=== PATIENT | female | born 1985 | race Caucasian/White ===

== ENCOUNTER 2017-02-14 12:22 | Emergency (ER) | payer MEDICAID ==
[~2017-02-14] VITALS: Wt 71.0 kg
--- NOTE | 2017-02-14 14:34 | ERA ---
ER Documentation Chief Complaint Date/Time DATE: 02/14/17 TIME: 14:27 Chief Complaint RIGHT ARM PAIN AFTER FALL 2 WEEKS AGP HPI Patient presents with right hand pain. Patient experienced trauma 2 weeks ago to the right forearm. Patient's right forearm is now is 0 out of 10 on pain scale. Patient's pain in the right hand however persists despite daily ibuprofen use. Patient's pain is worse with movement and subsides with rest. Patient denies any inflammation, fever, swelling, or trauma to the digit. Denies any loss of sensation or movement. ROS All systems reviewed and are negative except as per history of present illness. Medications Home Meds Active Scripts Ibuprofen* (Motrin*) 600 Mg Tab, 600 MG PO Q6H Y for PAIN AND OR ELEVATED TEMP, #30 TAB Prov:WILLIAM ZAYAS PA-C 02/14/17 Allergies Allergies: Coded Allergies: No Known Drug Allergy (Verified Allergy, Unknown, 05/10/07) Physical Exam Vitals Vital Signs Date Time Temp Pulse Resp B/P Pulse Ox O2 Delivery O2 Flow Rate FiO2 02/14/17 12:28 98.0 71 18 129/63 99 Physical Exam Const: Well-appearing 31-year-old female. Head: Atraumatic Eyes: Normal Conjunctiva ENT: Normal External Ears, Nose and Mouth. Neck: Full range of motion..~ No meningismus. Resp: Clear to auscultation bilaterally Cardio: Regular rate and rhythm, no murmurs Abd: Soft, non tender, non distended. Normal bowel sounds Skin: No petechiae or rashes Back: No midline or flank tenderness Ext: No cyanosis, or edema. Right thumb has limited range of motion with abduction. Positive Cecilia test. Pain over the lateral malleolus. Crepitus on palpation of the right thumb with adduction. Neur: Awake and alert sensation intact bilaterally. Psych: Normal Mood and Affect Procedures/MDM Patient is presenting with complaint of right hand pain. Patient's thumb has limited range of motion secondary to pain. Patient had a positive Cecilia test. Since there is a history of trauma to the right forearm will go ahead and get an x-ray. Patient's x-ray was normal. Have advised the patient to follow-up with her primary care provider and home specialist within the next 1-3 days. Will discharge with a thumb spica splint and have recommended to take ibuprofen as needed for any discomfort or inflammation as prescribed. Have discussed rice therapy. Departure Condition: Stable Additional Instructions: Follow-up with an home specialist within the next week. Continue ibuprofen for pain. Follow-up with primary care provider in the next 1-3 days. WILLIAM ZAYAS PA-C Feb 14, 2017 14:34
[2017-02-14] MEDS ORDERED: IBUP-1542 PO (14:40)
--- NOTE | 2017-02-14 15:18 | RADRPT ---
PROCEDURE: Right hand series CLINICAL INDICATION: Right hand pain after trauma TECHNIQUE: Three views of the right hand were obtained. COMPARISON: No prior studies are available for comparison. FINDINGS: There is normal mineralization and alignment of the bones of the right hand. There is no evidence o f acute fracture or dislocation. Joint spaces are well maintained. There is no evidence of osteoph yte formation or erosions. There is a subtle linear hyperdensity overlying the soft tissues of the distal second finger which may be within the nail or under the nail. IMPRESSION: 1. No evidence of acute fracture or dislocation. 2. Subtle linear hyperdensity in the soft tissues of the distal second digit which may be related t o the fingernail. Recommend correlation with physical exam. RPTAT: KK .Fish Dumont MD, Date Time Electronically viewed and signed by .Fish Dumont MD, MD on 02/14/2017 15:18 .B/
--- NOTE | 2017-02-14 15:30 | RADRPT ---
PROCEDURE: XR Wrist. CLINICAL INDICATION: Right wrist pain TECHNIQUE: AP, lateral and oblique views of the right wrist were performed. COMPARISON: Radiographs of the right hand performed same day FINDINGS: There is no acute fracture or dislocation. Alignment is normal. Joint spaces are preserved. Visualized soft tissues are grossly unremarkable. IMPRESSION: 1. No radiographic evidence of acute osseous abnormality of the right wrist. RPTAT: UU .Calin Woody MD, MD Date Time Electronically viewed and signed by .Calin Woody MD, on 02/14/2017 15:30 .K/
== END 2017-02-14 16:23 | disposition home or self-care (01) ==
LOC: FTE 12:22
DX: S69.91XA Unspecified injury of right wrist, hand and finger(s), initial encounter (principal); W18.39XA Other fall on same level, initial encounter; Y92.9 Unspecified place or not applicable
CPT/HCPCS: 29125; 73110; 73130; Z7502

== ENCOUNTER 2019-02-14 15:26 | Emergency (ER) | payer MEDICAID ==
[~2019-02-14] VITALS: Wt 69.5 kg
[~2019-02-14 15:26] MED LIST: IBUP-1542 PO
--- NOTE | 2019-02-14 18:05 | ERD ---
ER Documentation Chief Complaint Chief Complaint BACK PAIN RAD FRONT, BURNING SENSATION HPI Is a 33-year-old female who presents to the emergency room with complaint of left flank pain that radiates into left lower quadrant and pelvis X1 week. Yesterday started having nausea and feeling dizzy. Subjective fever. Increased urinary frequency, no burning with urination. Denies any vaginal discharge. Started menstrual period yesterday. No other medical problems. ROS All systems reviewed and are negative except as per history of present illness. Medications Home Meds Active Scripts Phenazopyridine Hcl* (Pyridium*) 200 Mg Tab, 200 MG PO TID for 3 Days, #10 TAB Prov:LJ QUIÑONES NP 02/14/19 Sulfamethoxazole/Trimethoprim* (Bactrim Ds* Tablet) 1 Each Tablet, 1 TAB PO BID for 3 Days, #5 TAB Prov:LJ QUIÑONES NP 02/14/19 Ibuprofen* (Motrin*) 600 Mg Tab, 600 MG PO Q6H PRN for PAIN AND OR ELEVATED TEMP, #30 TAB Prov:WILLIAM ZAYAS PA-C 02/14/17 Allergies Allergies: Coded Allergies: No Known Drug Allergy (Verified Allergy, Unknown, 05/10/07) PMhx/Soc Medical and Surgical Hx: pt denies Medical Hx, pt denies Surgical Hx Hx Alcohol Use: No Hx Substance Use: No Hx Tobacco Use: No Smoking Status: Never smoker FmHx Family History: No diabetes, No coronary disease, No other Physical Exam Vitals Vital Signs Date Temp Pulse Resp B/P (MAP) Pulse Ox O2 O2 Flow FiO2 Time Delivery Rate 02/14/19 98.5 70 18 115/73 100 Room Air 20:51 (87) 02/14/19 99.1 83 18 134/79 99 15:29 (97) Physical Exam Const: No acute distress Head: Atraumatic Eyes: Normal Conjunctiva ENT: Normal External Ears, Nose and Mouth. Neck: Full range of motion. No meningismus. Resp: Clear to auscultation bilaterally Cardio: Regular rate and rhythm, no murmurs Abd: Soft, tender at left lower quadrant, non distended. Normal bowel sounds. Skin: No petechiae or rashes Back: + left flank tenderness Ext: No cyanosis, or edema Neur: Awake and alert Psych: Normal Mood and Affect Results 24 hrs Laboratory Tests Test 4/6/19 17:06 02/14/19 17:15 02/14/19 17:17 Urine Color YELLOW Urine Clarity CLEAR Urine pH 6.0 Urine Specific [place] 1.006 Urine Ketones NEGATIVE mg/dL Urine Nitrite NEGATIVE mg/dL Urine Bilirubin NEGATIVE mg/dL Urine Urobilinogen NEGATIVE mg/dL Urine Leukocyte Esterase NEGATIVE Samantha/ul Urine Microscopic RBC > 182 /HPF Urine Microscopic WBC 5 /HPF Urine Squamous Epithelial Cells MODERATE /HPF Urine Hemoglobin 3+ mg/dL Urine Glucose NEGATIVE mg/dL Urine Total Protein NEGATIVE mg/dl Bedside Urine pH (LAB) 6.0 Bedside Urine Protein (LAB) Negative Bedside Urine Glucose (UA) Negative Bedside Urine Ketones (LAB) Negative Bedside Urine Blood 3+ Bedside Urine Nitrite (LAB) Negative Bedside Urine Leukocyte Esterase (L Trace POC Beta HCG, Qualitative NEGATIVE Current Medications Medications Dose Sig/Agata Start Time Status Last (Trade) Ordered Route PRN Stop Time Admin Dose Reason Admin 1 tab ONCE ONCE 02/14/19 DC 02/14/19 Trimethoprim/ PO 21:00 02/14/19 20:47 21:00 Sulfamethoxaz ole (Bactrim (Ds)) 200 mg ONCE ONCE 02/14/19 DC 02/14/19 Phenazopyridi PO 21:00 02/14/19 20:47 ne HCl 21:00 (Pyridium) Procedures/MDM 33-year-old female patient presents to the emergency room with complaint of left flank pain times 1 week. ED COURSE: The patient was stable throughout ED course. I kept the patient informed of laboratory and diagnostic imaging results throughout the ED course. DIAGNOSTIC IMAGING: Ultrasound Pelvic US: no pelvic abnormalities Retroperitoneal US: Normal sonographic exam of both kidneys Read by radiologist. MEDICATIONS GIVEN: Bactrim DS and Pyridium Patient tolerated medication well with no adverse reactions. Patient reported improvement in pain. There is low suspicion for pyelonephritis, vaginitis, STI, interstitial cystitis, nephrolithiasis, ovarian torsion, or ectopic , due to absence of clinical findings that would support a diagnosis more serious than uncomplicated UTI. These diagnoses have been considered and excluded clinically. Nonetheless, it is understood by both the patient and provider that no clinical or diagnostic assessment can entirely exclude such diseases. Patient has been instructed on signs and symptoms of concern or with evolving condition with strict instructions to return to ED for reevaluation. Patient was provided with results of all diagnostic tests and instructed to follow-up with primary care provider in 3-5 days for reevaluation of her symptoms. Departure Condition: Stable Additional Instructions: Thank you very much for allowing us to participate in your care. Your health and safety is our top priority at [facility]. Call your primary care doctor TOMORROW for an appointment during the next 2-4 days and bring all the information and medications prescribed. Have prescriptions filled and follow precisely the directions on the label. If the symptoms get worse and your provider is unavailable, return to the Emergency Department immediately. LJ QUIÑONES NP Feb 14, 2019 18:04
[2019-02-14] MEDS ORDERED: SULF1TAB31 PO (20:38)
[2019-02-14] MEDS ORDERED: PHEN-538 PO (20:38)
[2019-02-14 20:51] VITALS: BP 115/73; PULSE 70; RESP 18
[2019-02-14] MEDS ORDERED: TRIMETHOPRIM/SULFAMETHOX (DS) TAB PO ONE (21:00)
[2019-02-14] MEDS ORDERED: PHENAZOPYRIDINE 100 MG TAB PO ONE (21:00)
== END 2019-02-14 20:52 | disposition home or self-care (01) ==
LOC: FTE 15:26
DX: R10.32 Left lower quadrant pain (principal); R10.2 Pelvic and perineal pain
CPT/HCPCS: 76775; 76856; 81001; 81025; Z7502; Z7610; 81003

== ENCOUNTER 2019-03-25 17:09 | Emergency (ER) | payer MEDICAID ==
[~2019-03-25] VITALS: Wt 69.0 kg
[~2019-03-25 17:09] MED LIST changes: +PHEN-538 PO; +SULF1TAB31 PO
[2019-03-25] MEDS ORDERED: KETOROLAC 15 MG INJ IV STA (17:57)
[2019-03-25] MEDS ORDERED: SOD CHLORIDE 0.9% 1,000 ML IV STA (17:57)
[2019-03-25] MEDS ORDERED: ONDANSETRON 4 MG INJ IV STA (17:57)
--- NOTE | 2019-03-25 18:08 | ERD ---
ER Documentation Chief Complaint Chief Complaint L abdomen rad to flank pain x1mo; denies dysuria, no VD. some nausea HPI 33-year-old female with no significant past medical history presenting to the emergency department complaining of left upper quadrant pain for the past 1 month. She states that the pain began after she had URI symptoms for 2 weeks. Symptoms included fevers, chills, and sore throat. She reports radiation of the left flank area. Pain is intermittent, 7/10 in severity, alleviated with ibuprofen and Tylenol. She reports a burning sensation. She does report nausea but denies any fevers, chills, vomiting, diarrhea, or other symptoms at this time. ROS All systems reviewed and are negative except as per history of present illness. Medications Home Meds Active Scripts Naproxen* (Naprosyn*) 500 Mg Tablet, 500 MG PO BID PRN for PAIN AND/OR INFLAMMATION, #30 TAB Prov:BREE SMALL PA-C 03/25/19 Phenazopyridine Hcl* (Pyridium*) 200 Mg Tab, 200 MG PO TID for 3 Days, #10 TAB Prov:LJ QUIÑONES NP 02/14/19 Sulfamethoxazole/Trimethoprim* (Bactrim Ds* Tablet) 1 Each Tablet, 1 TAB PO BID for 3 Days, #5 TAB Prov:LJ QUIÑONES NP 02/14/19 Ibuprofen* (Motrin*) 600 Mg Tab, 600 MG PO Q6H PRN for PAIN AND OR ELEVATED TEMP, #30 TAB Prov:WILLIAM ZAYAS PA-C 02/14/17 Allergies Allergies: Coded Allergies: No Known Drug Allergy (Verified Allergy, Unknown, 05/10/07) PMhx/Soc Medical and Surgical Hx: pt denies Medical Hx Hx Alcohol Use: No Hx Substance Use: No Hx Tobacco Use: No FmHx Family History: No diabetes Physical Exam Vitals Vital Signs Date Temp Pulse Resp B/P (MAP) Pulse Ox O2 O2 Flow FiO2 Time Delivery Rate 03/25/19 97.8 77 16 107/60 100 Room Air 20:59 (76) 03/25/19 99.2 86 20 137/71 100 17:39 (93) Physical Exam Const: No acute distress Head: Atraumatic Eyes: Normal Conjunctiva ENT: Normal External Ears, Nose and Mouth. Neck: Full range of motion. No meningismus. Resp: Clear to auscultation bilaterally Cardio: Regular rate and rhythm, no murmurs Abd: Soft, subjective tenderness to palpation of the left upper quadrant, no rebound tenderness or guarding, no McBurney's point tenderness, non distended. Normal bowel sounds Skin: No petechiae or rashes Back: No midline or flank tenderness Ext: No cyanosis, or edema Neur: Awake and alert Psych: Normal Mood and Affect Result Diagram: 03/25/19184903/25/191849 Results 24 hrs Laboratory Tests Test 03/25/19 18:50 03/25/19 18:59 White Blood Count 9.2 10^3/ul Red Blood Count 5.06 10^6/ul Hemoglobin 10.6 g/dl Hematocrit 35.1 % Mean Corpuscular Volume 69.4 fl Mean Corpuscular Hemoglobin 20.9 pg Mean Corpuscular Hemoglobin Concent 30.2 g/dl Red Cell Distribution Width 18.3 % Platelet Count 312 10^3/UL Mean Platelet Volume 10.2 fl Immature Granulocytes % 0.400 % Neutrophils % 61.9 % Lymphocytes % 30.2 % Monocytes % 5.7 % Eosinophils % 1.4 % Basophils % 0.4 % Nucleated Red Blood Cells % 0.0 /100WBC Immature Granulocytes # 0.040 10^3/ul Neutrophils # 5.7 10^3/ul Lymphocytes # 2.8 10^3/ul Monocytes # 0.5 10^3/ul Eosinophils # 0.1 10^3/ul Basophils # 0.0 10^3/ul Nucleated Red Blood Cells # 0.0 10^3/ul Prothrombin Time 13.2 Sec Prothrombin Time Ratio 1.0 INR International Normalized Ratio 0.99 Activated Partial Thromboplast Time 27.3 Sec Urine Color COLORLESS Urine Clarity CLEAR Urine pH 6.0 Urine Specific [place] 1.005 Urine Ketones NEGATIVE mg/dL Urine Nitrite NEGATIVE mg/dL Urine Bilirubin NEGATIVE mg/dL Urine Urobilinogen NEGATIVE mg/dL Urine Leukocyte Esterase NEGATIVE Samantha/ul Urine Hemoglobin NEGATIVE mg/dL Urine Glucose NEGATIVE mg/dL Urine Total Protein NEGATIVE mg/dl Sodium Level 142 mmol/L Potassium Level 3.9 mmol/L Chloride Level 107 mmol/L Carbon Dioxide Level 27 mmol/L Anion Gap 8 Blood Urea Nitrogen 7 mg/dl Creatinine 0.65 mg/dl Est Glomerular Filtrat Rate mL/min > 60 mL/min Glucose Level 88 mg/dl Calcium Level 9.1 mg/dl Total Bilirubin 0.4 mg/dl Direct Bilirubin 0.00 mg/dl Indirect Bilirubin 0.4 mg/dl Aspartate Amino Transf (AST/SGOT) 19 IU/L Alanine Aminotransferase (ALT/SGPT) 21 IU/L Alkaline Phosphatase 71 IU/L Total Protein 7.6 g/dl Albumin 4.1 g/dl Globulin 3.50 g/dl Albumin/Globulin Ratio 1.17 Lipase 50 U/L Monoscreen Negative POC Beta HCG, Qualitative NEGATIVE Current Medications Medications Dose Sig/Agata Start Time Status Last (Trade) Ordered Route PRN Stop Time Admin Dose Reason Admin Sodium 1,000 ml @ Q1H STAT 03/25/19 DC 03/25/19 Chloride 1,000 mls/hr IV 17:57 19:03 03/25/19 18:56 Ondansetron 4 mg ONCE STAT 03/25/19 DC 03/25/19 HCl (Zofran IV 17:57 19:03 Inj) 03/25/19 17:59 Ketorolac 15 mg ONCE STAT 03/25/19 DC 03/25/19 Tromethamine IV 17:57 19:12 (Toradol) 03/25/19 17:59 [place] [address] Radiology Main Line: [phone] DIAGNOSTIC IMAGING REPORT Patient: JERONIMO BANKS : 1985 Age: 33 Sex: F MR #: [id number] DOS: 03/25/19 175 Ordering MD: BREE SMALL PA-C Location: [facility] Room/Bed: PROCEDURE: CT Abdomen and Pelvis without contrast. CLINICAL INDICATION: Left-sided abdominal pain times 1 month, nausea TECHNIQUE: CT scan of the abdomen and pelvis without contrast was performed on a multidetector high-resolution CT scanner. The patient was scanned without intravenous contrast. Coronal and sagittal reformatted images were obtained from the axial source images. Images were reviewed on a high-resolution PACS workstation. The total exam CTDI equals 9.84 mGy and the total exam DLP equals 523.75 mGy-cm. One or more the following dose reduction techniques were utilized: Automated exposure control, adjustment of the mA and / or kV according to patient's size, or use of iterative reconstruction technique. DICOM images are available. COMPARISON: US ABDOMEN 02/14/2019; US PELVIS 02/14/2019 FINDINGS: Minimal dependent atelectasis at posterior lung bases. No pneumoperitoneum is seen. No abnormalities seen in the liver, gallbladder, spleen, pancreas, adrenals or kidneys. No biliary dilatation is seen. Food material/debris and air seen in the stomach. No abdominal aortic aneurysm is seen. Very small umbilical hernia containing fat only. No renal or ureteral stone is seen. No abnormalities seen in the bladder. No definite abnormality of the uterus or adnexal regions seen on CT. No ascites is seen. No abnormalities seen in the colon. There is an unremarkable appendix. No dilated small bowel loops are seen. No enlarged lymph nodes are seen in the abdomen or pelvis. No osseous abnormalities seen. IMPRESSION: No acute abnormality seen as noted above. Please see above. RPTAT: HJES .Epi Novak MD, MD Date Time Electronically viewed and signed by .Epi Novak MD, on 03/25/2019 20:03 .S/ CC: BREE SMALL PA-C [id number] Procedures/MDM 33-year-old female presented to the emergency department complaining of left upp er quadrant abdominal pain with radiation of the left flank area. The patient was administered IV fluids and IV Toradol and IV Zofran in the department with good response. On reevaluation she was improved. CBC: no e/o of systemic infection or severe anemia CMP: no e/o severe acidosis, alkalosis, renal failure, diabetic ketoacidosis, liver disease Lipase: no e/o pancreatitis PT/INR: normal coagulation Urine: no e/o acute infection or hematuria Monospot: Negative Medical decision making: Patient symptoms most likely secondary to GERD or other nonemergent etiology. Patient's abdominal symptoms have stabilized while in the department. No evidence of severe dehydration, sepsis, or surgical abdomen Extensive discussion with family and patient that occult disease cannot be ruled out. 8 hour recheck for repeat abdominal exam is planned. No evidence of life-threatening pathology at time of discharge. Pt/family in agreement with discharge plan/diagnosis. Pt/family advised to return immediately with any new or worsening symptoms. Follow-up with primary care physician within the next 1-2 days. Disclaimer: Inadvertent spelling and grammatical errors are likely due to EH R/dictation software use and do not reflect on the overall quality of patient care. Also, please note that the electronic time recorded on this note does not necessarily reflect the actual time of the patient encounter. Departure Diagnosis: Primary Impression: Abdominal pain Condition: Fair Patient Instructions: Abdominal Pain Additional Instructions: Follow up with your PCP within the next 1-3 days for a repeat evaluation. If you require a referral to a specialist, your Primary Care Provider may be able to provide this for you. In most patient cases, a referral is not required. If you have further questions regarding this matter, please ask your Primary Care Prov ider. Return the the emergency department immediately if symptoms worsen or change. If you have any questions regarding medications, ask your pharmacist or us before you leave. If any adverse reactions, occur while taking your medications, discontinue the treatment and return to the emergency department immediately. If any new or worsening symptoms, uncontrolled fevers, or other unexplained symptoms occur, return to the emergency department immediately. Take your medications as directed, and complete the entire course of treatment. BREE SMALL PA-C March 25, 2019 18:08
[2019-03-25] MEDS ORDERED: NAPR-985 PO (20:44)
[2019-03-25 20:59] VITALS: BP 107/60; PULSE 77; RESP 16
== END 2019-03-25 20:59 | disposition home or self-care (01) ==
LOC: FTE 17:09
DX: R10.12 Left upper quadrant pain (principal)
CPT/HCPCS: 36415; 74176; 80053; 81003; 81025; 83690; 85025; 85610; 85730; 86308; 96374; 96375; J1885; J2405; J7030; Z7502